=== PATIENT | male | born 1955 | race Caucasian/White ===

== ENCOUNTER → 2017-09-18 | Outpatient (CLI) | payer OTHER ==
[~2017-09-18] MED LIST: ALL300 PO; ASCA500 PO; ASPI-390 PO; CLC100 PO; FRRG PO; LPR50X PO; LVNIS30 SQ; SIMV20TA5 PO
== END | disposition home or self-care (01) ==
LOC: C.RDSM 17:21
PROVIDERS: ATTEND Orthopaedic Surgery Sports Medicine
DX: Z96.653 Presence of artificial knee joint, bilateral (principal)